=== PATIENT | female | born 1950 | race Two or more races ===

== ENCOUNTER 2023-01-30 15:45 | Emergency (ER) | payer OTHER, BC ==
[~2023-01-30] VITALS: Ht 160 cm; Wt 59.0 kg
[2023-01-30] MEDS ORDERED: LOSARTAN POTASS50 MG PO (16:01)
[2023-01-30] MEDS ORDERED: ADZENYS XR-ODT3.1 MG PO (16:02)
[2023-01-30] MEDS ORDERED: SYNTHROID50 MCG PO (16:02)
== END 2023-01-30 19:41 | disposition home or self-care (01) ==
LOC: ER 15:45
DX: L72.8 Other follicular cysts of the skin and subcutaneous tissue (principal); Z88.0 Allergy status to penicillin; Z88.6 Allergy status to analgesic agent